=== PATIENT | female | born 1955 | race Caucasian/White ===

== ENCOUNTER → 2017-08-10 | Outpatient (CLI) | payer OTHER, BC ==
--- NOTE | 2017-08-12 16:42 | MG ---
Examination: Bilateral screening mammogram. Clinical history: Routine screening. Technique: Digital CC and MLO views of both breasts were obtained. Implant displaced views of both br easts were also obtained. Computer aided detection analysis was performed and used during the interpr etation. Comparison: None available. Findings: The breasts are heterogeneously dense, reducing the sensitivity of mammography. Benign-appearing calc ifications and vascular calcifications are noted in the breasts bilaterally. Bilateral breast prostheses are noted, with bulges of the contours of both breasts prostheses seen, w hich could be indicative of ruptures of the implants or herniation of the implants through a tear in the fibrous capsule. No suspicious mass, area of architectural distortion or suspicious cluster of microcalcifications is noted. Impression: 1. No mammographic evidence of malignancy. 2. Bilateral breast prostheses are noted, with bulges of the contours of both breasts prostheses seen , which could be indicative of ruptures of the implants or herniation of the implants through a tear in the fibrous capsule. BI-RADS category 2-benign findings. Recommend routine annual screening mammogram. Diagnostic CAD was utilized and reviewed. * 0 (ZERO) - ASSESSMENT INCOMPLETE; ADDITIONAL IMAGING IS NEEDED. * 0C - ASSESSMENT INCOMPLETE, NEEDS ADDITIONAL IMAGING EVALUATION AND/OR PRIOR MAMMOGRAMS FOR COMPARI SON. * 1/1 (ONE) - NEGATIVE. * 2/II (TWO) - BENIGN FINDINGS. * 3/III (THREE) - PROBABLY BENIGN FINDING; SHORT INTERVAL FOLLOW-UP SUGGESTED. * 4/IV (FOUR) - SUSPICIOUS ABNORMALITY; BIOPSY SHOULD BE CONSIDERED. * 5/V - HIGHLY SUSPICIOUS OF MALIGNANCY; BIOPSY SHOULD BE PERFORMED. * 6/IV - KNOWN BIOPSY PROVEN MALIGNANCY-APPROPRIATE ACTION SHOULD BE TAKEN. A NEGATIVE X-RAY REPORT SHOULD NOT DELAY BIOPSY IF A DOMINANT OR CLINICALLY SUSPICIOUS MASS IS PRESENT; 4 TO 8 PERCENT OF CANCERS ARE NOT IDENTIFIED BY X-RAY. A NEGATIVE REPORT MAY REINFORCE THE CLINICAL IMPRESSION. ADENOSIS AND DENSE BREASTS MAY OBSCURE AN UNDERLYING NEOPLASM. Reported By:
== END ==
LOC: RAD 10:39
PROVIDERS: ATTEND Specialist
DX: Z12.31 Encounter for screening mammogram for malignant neoplasm of breast (principal)
CPT/HCPCS: 77067